=== PATIENT | female | born 1980 | race Caucasian/White ===

== ENCOUNTER 2017-04-18 06:59 | Day surgery (SDC) | payer BC ==
[~2017-04-18 06:59] MED LIST: Lactated Ringers 1,000 ML IV SCH; Lidocaine 1%/Sod Bicarbonate in NS 8.4% 1 ML Syringe IV PRN; Sodium Chloride 0.9% 10 ML Syringe FLUSH PRN
--- NOTE | 2017-04-18 07:25 | PCM.PREANE ---
Preanesthetic Assessment - Anesthesia/Transfusion/Family Hx Anesthesia History: Prior Anesthesia Without Reaction Family History of Anesthesia Reaction: No Transfusion History: No Prior Transfusion(s) - Review of Systems General: No Symptoms Pulmonary: No Symptoms Cardiovascular: No Symptoms Gastrointestinal: No symptoms Neurological: No Symptoms Other: Reports: None - Physical Assessment NPO Status Date: 04/17/17 NPO Status Time: 00:00 Pulse: 68 O2 Sat by Pulse Oximetry: 96 Respiratory Rate: 16 Blood Pressure: 104/58 Temperature: 37.2 C Height: 1.63 m Weight: 56.699 kg ASA Class: 2 Mental Status: Alert & Oriented x3 Airway Class: Mallampati = 1 Dentition: Reports: Normal Dentition Thyro-Mental Finger Breadths: 3 Mouth Opening Finger Breadths: 3 ROM/Head Extension: Full Lungs: Clear to auscultation, Normal respiratory effort Cardiovascular: Regular Rate, Regular Rhythm - Lab Values: Laboratory Last Values MRSA (PCR) Negative 04/15/17 13:59 - Allergies Allergies/Adverse Reactions: Allergies Allergy/AdvReac Type Severity Reaction Status Date / Time chlorhexidine Allergy Mild Itching Verified 04/17/17 15:49 - Acknowledgements Anesthesia Type Planned: Spinal Pt an Appropriate Candidate for the Planned Anesthesia: Yes Alternatives and Risks of Anesthesia Discussed w Pt/Guardian: Yes Pt/Guardian Understands and Agrees with Anesthesia Plan: Yes PreAnesthesia Questionnaire - Past Health History Medical/Surgical History: Denies Medical/Surgical History HEENT History: Reports: Allergic Rhinitis Cardiovascular History: Reports: None Respiratory History: Reports: Bronchitis, Recurrent Gastrointestinal History: Reports: Chronic Diarrhea, GERD, Other (See Below) Other Gastrointestinal History: REMOVAL FOREIGN BODY ESOPHAGUS X 2, ulcer Genitourinary History: Reports: None 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 Other OB/BYN History: pelvic pain Musculoskeletal History: Reports: Back Pain, Chronic, Other (See Below) Other Musculoskeletal History: hip pain Neurological History: Reports: Migraines Psychiatric History: Reports: Anxiety, Depression Endocrine/Metabolic History: Reports: Other (See Below) Other Endocrine/Metabolic History: low serum progesterone Hematologic History: Reports: None Immunologic History: Reports: None Oncologic (Cancer) History: Reports: None - Past Surgical History Head Surgeries/Procedures: Reports: None HEENT Surgical History: Reports: Oral Surgery GI Surgical History: Reports: Appendectomy, Cholecystectomy, Colonoscopy Female Surgical History: Reports: Breast Implant Dermatological Surgical History: Reports: Other (See Below) - SUBSTANCE USE Smoking Status *Q: Current Some Day Smoker Tobacco Use Within Last Twelve Months: Smokeless Tobacco Second Hand Smoke Exposure: No Days Per Week of Alcohol Use: 0 Number of Drinks Per Day: 0 Total Drinks Per Week: 0 Recreational Drug Use History: No - HOME MEDS Home Medications: Home Meds Progesterone [Progesterone In Oil] 1 dose TOP ASDIRECTED 03/20/15 [History] Fluticasone Propionate [Flonase] 1 spray INH DAILY 11/25/15 [History] ALPRAZolam [Alprazolam] 0.25 mg PO DAILY 04/17/17 [History] Fish Oil/[place]-3 Fatty Acids [Fish Oil 1,000 MG] 1 cap PO BID 04/17/17 [History] - CURRENT (IN HOUSE) MEDS Current Meds: Current Medications Lactated Ringer's (Ringers, Lactated) 1,000 mls @ 125 mls/hr IV ASDIRECTED CHEPE Lidocaine/Sodium Bicarbonate (Buffered Lidocaine 1% In Ns 8.4%) 0.25 ml IV ONETIME PRN PRN Reason: Prior to IV Start Sodium Chloride (Saline Flush) 10 ml FLUSH ASDIRECTED PRN PRN Reason: Keep Vein Open
[2017-04-18] MEDS ORDERED: Ondansetron 4 MG/2 ML SDV ONE (07:46)
[2017-04-18] MEDS ORDERED: fentaNYL 250 MCG/5 ML SDV ONE (07:46)
[2017-04-18] MEDS ORDERED: Midazolam 1 MG/ML 2 ML SDV ONE (07:46)
[2017-04-18] MEDS ORDERED: Dexamethasone 4 MG/ML 5 ML MDV ONE (07:46)
[2017-04-18] MEDS ORDERED: diphenhydrAMINE 50 MG/ML SDV ONE (07:46)
[2017-04-18] MEDS ORDERED: Lidocaine 1% 4 ML ONE (07:46)
[2017-04-18] MEDS ORDERED: Propofol 200 MG/20 ML SDV ONE (07:46)
[2017-04-18] MEDS ORDERED: ceFAZolin 1 GM Vial ONE (07:49)
[2017-04-18] MEDS: Bupivacaine 0.25% 30 ML SDV ONE ×2 (07:56→09:39)
[2017-04-18] MEDS ORDERED: Lidocaine 1%/Sod Bicarbonate in NS 8.4% 1 ML Syringe PRN (08:00)
[2017-04-18] MEDS ORDERED: Scopolamine 1.5 MG Transdermal Patch TOP ONE (08:00)
[2017-04-18] MEDS ORDERED: HYDROmorphone 1 MG/ML Syringe ONE (09:09)
[2017-04-18] MEDS ORDERED: Lactated Ringers 1,000 ML ONE (09:40)
--- NOTE | 2017-04-18 10:03 | PCM.POSTAN ---
POST ANESTHESIA ASSESSMENT - MENTAL STATUS Mental Status: somnolent - VITAL SIGNS Pulse Rate: 58 SaO2: 94 Resp Rate: 10 Blood Pressure: 88/48 Temperature: 37.1 C - RESPIRATORY Respiratory Status: respiratory rate WNL, airway patent, O2 saturation stable, supplemental oxygen - CARDIOVASCULAR CV Status: pulse rate WNL, blood pressure stable - GASTROINTESTINAL GI Status: no symptoms - PAIN Pain Score: 0 - POST OP HYDRATION Hydration Status: adequate & stable - OBSERVATIONS Free Text/Narrative:: no anesthesia complications noted
[2017-04-18] MEDS: fentaNYL 100 MCG/2 ML SDV IVPUSH PRN ×3 (10:11→10:25)
[2017-04-18] MEDS ORDERED: HYDROmorphone 0.5 MG/0.5 ML Syringe IVPUSH ONE (10:45)
[2017-04-18] MEDS ORDERED: Acetaminophen/HYDROcodone 325-5 MG Tab PO ONE (11:15)
--- NOTE | 2017-04-18 11:32 | PCM.OPNOTE ---
- General Post-Op/Procedure Note Date of Surgery/Procedure: 04/18/17 Operative Procedure(s): percutaneous pinning of left femoral neck stress fracture Pre Op Diagnosis: left femoral neck stress fracture Post-Op Diagnosis: Same Anesthesia Technique: General LMA, Local Primary Surgeon: Oliver Hampton Anesthesia Provider: Juan Monzon Police Specialist: Saba Mejia EBL in mLs: 10 Complications: None Condition: Good Free Text/Narrative:: Intake & Output 04/17/17 04/18/17 04/18/17 22:59 06:59 14:59 Intake Total 250 Balance 250
[2017-04-18 12:12] VITALS: BP 107/66
--- NOTE | 2017-04-18 19:16 | OR ---
DATE OF OPERATION: 04/18/2017 SURGEON: Oliver Hampton MD OPERATION PERFORMED: Percutaneous pinning of left femoral neck stress fracture. PREOPERATIVE DIAGNOSIS: Left femoral neck stress fracture. POSTOPERATIVE DIAGNOSIS: Left femoral neck stress fracture. ANESTHESIA: General LMA with local. ANESTHESIA PROVIDER: Juan Monzon CRNA. TABLET TESTER: Saba Mejia PA-C. ESTIMATED BLOOD LOSS: 10 mL. CONDITION: Stable. DESCRIPTION OF PROCEDURE: The patient was identified in the preop holding area. Proper site was marked and identified by the surgeon. The patient was taken back to the operating theater where after adequate anesthesia, the patient was placed on the traction table, just gross traction was applied to both extremities, but no fine traction was applied. The left hip was then sterilely prepped and draped in the usual sterile fashion. OR time-out was performed. The patient received 2 g of IV Ancef. At this time, under C-arm fluoroscopy, the starting point for the inferior calcar screw was done in both the AP and lateral views making sure not to be below the level of the lesser trochanter. The guide pin was then placed up near the junction of the femoral acetabular joint. Next, the superior pins both anterior and posterior were placed on both AP and lateral views making sure they were within the neck. It was found to be in adequate position on all 3 pins. At this time, an over drill was used, and then three 85-mm 6.5-mm [place] titanium screws were placed they were found to have adequate fixation and the tip apex distance between all 3 was found to be sufficient. At this time, adequate saline was irrigated through all wounds. 0.25% Marcaine was injected around all stab incisions and theodora were used for skin along with a Mepilex dressing. The patient tolerated the procedure well and sent to PACU in stable condition. She can be weight bear as tolerated. MMTERRENCE /[id number]
--- NOTE | 2017-04-19 09:05 | CR ---
Left hip: Multiple fluoroscopic spot views of the left hip were obtained utilizing C-arm device. Comparison: Previous MRI left hip study of 12/16/16 There is placement of 3 cannulated screws across the femoral neck. Tips of the cannulated screws lie within the femoral head. No underlying bony abnormality is otherwise seen. Fluoroscopy time given as 106 seconds. Impression: 1. Operative study as described above. Diagnostic code #2
== END 2017-04-18 13:01 | disposition home or self-care (01) ==
LOC: JD.SDS 06:59
PROVIDERS: ATTEND Orthopaedic Surgery
PROC: 0QH934Z Insertion of Internal Fixation Device into Left Femoral Shaft, Percutaneous Approach (ICD-10-PCS; principal; 2017-04-18)
DX: M84.352A Stress fracture, left femur, initial encounter for fracture (principal); J30.9 Allergic rhinitis, unspecified; F41.9 Anxiety disorder, unspecified; F32.9 Major depressive disorder, single episode, unspecified; K21.9 Gastro-esophageal reflux disease without esophagitis; M54.17 Radiculopathy, lumbosacral region; J40 Bronchitis, not specified as acute or chronic; Z87.891 Personal history of nicotine dependence; Z90.49 Acquired absence of other specified parts of digestive tract; Z98.890 Other specified postprocedural states; Z79.899 Other long term (current) drug therapy
CPT/HCPCS: 27235; 76000; 81025; 87641; A9270; J0690; J1100; J1170; J1200; J2250; J2405; J3010; J7120; 01230; C1713; J2704; J3490

== ENCOUNTER 2018-12-26 09:10 | Day surgery (SDC) | payer BC ==
[~2018-12-26 09:10] MED LIST changes: +Lidocaine 1% 4 ML ONE; +Lidocaine 1%/Sod Bicarbonate in NS 8.4% 1 ML Syringe IDERM PRN; -Lidocaine 1%/Sod Bicarbonate in NS 8.4% 1 ML Syringe IV PRN; +Midazolam 1 MG/ML 2 ML SDV ONE; +Propofol 200 MG/20 ML SDV ONE; +fentaNYL 100 MCG/2 ML SDV ONE
--- NOTE | 2018-12-26 10:03 | PCM.PREANE ---
Preanesthetic Assessment - Anesthesia/Transfusion/Family Hx Anesthesia History: Prior Anesthesia Without Reaction Transfusion History: No Prior Transfusion(s) - Review of Systems General: No Symptoms, Other Pulmonary: No Symptoms Cardiovascular: No Symptoms Gastrointestinal: Other (GERD, patients states controlled ) Other: Reports: Thyroid Problems, Depression, Anxiety - Physical Assessment NPO Status Date: 12/26/18 NPO Status Time: 04:00 Pulse: 62 O2 Sat by Pulse Oximetry: 99 Respiratory Rate: 16 Blood Pressure: 114/73 Vital Signs: Last Vital Signs Temp 36.7 C 12/26/18 09:25 Pulse 62 12/26/18 09:25 Resp 16 12/26/18 09:25 BP 114/73 12/26/18 09:25 Pulse Ox 99 12/26/18 09:25 Weight: 54 kg ASA Class: 2 Mental Status: Alert & Oriented x3 Airway Class: Mallampati = 2 Dentition: Reports: Normal Dentition Thyro-Mental Finger Breadths: 3 Mouth Opening Finger Breadths: 3 ROM/Head Extension: Full Lungs: Clear to Auscultation, Normal Respiratory Effort Cardiovascular: Regular Rate, Regular Rhythm - Lab Values: Laboratory Last Values Urine HCG, Qual Negative (NEGATIVE) 12/26/18 09:22 - Allergies Allergies/Adverse Reactions: Allergies Allergy/AdvReac Type Severity Reaction Status Date / Time chlorhexidine Allergy Mild Itching Verified 12/26/18 10:00 - Blood Blood Available: No Product(s) Available: None - Anesthesia Plan Pre-Op Medication Ordered: None - Acknowledgements Anesthesia Type Planned: MAC Pt an Appropriate Candidate for the Planned Anesthesia: Yes Alternatives and Risks of Anesthesia Discussed w Pt/Guardian: Yes Pt/Guardian Understands and Agrees with Anesthesia Plan: Yes PreAnesthesia Questionnaire - Past Health History Medical/Surgical History: Denies Medical/Surgical History HEENT History: Reports: Allergic Rhinitis, Other (See Below) Other HEENT History: rhytides Cardiovascular History: Reports: None Respiratory History: Reports: Bronchitis, Recurrent Gastrointestinal History: Reports: Chronic Diarrhea, GERD, Other (See Below) Other Gastrointestinal History: REMOVAL FOREIGN BODY ESOPHAGUS X 2, gastric ulcer, RUQ pain Genitourinary History: Reports: None 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 Other OB/BYN History: pelvic pain, menorrhagia, dysmenorrhea, low progesterone Musculoskeletal History: Reports: Back Pain, Chronic, Other (See Below) Other Musculoskeletal History: hip pain Neurological History: Reports: Migraines Psychiatric History: Reports: Anxiety, Depression Endocrine/Metabolic History: Reports: Other (See Below) Other Endocrine/Metabolic History: low serum progesterone, hashimotos Hematologic History: Reports: None Immunologic History: Reports: None Oncologic (Cancer) History: Reports: None Dermatologic History: Reports: Other (See Below) Other Dermatologic History: rash, rhytides - Past Surgical History Head Surgeries/Procedures: Reports: None HEENT Surgical History: Reports: Oral Surgery Cardiovascular Surgical History: Reports: None Respiratory Surgical History: Reports: None GI Surgical History: Reports: Appendectomy, Cholecystectomy, Colonoscopy Female Surgical History: Reports: Breast Implant, Section Male Surgical History: Reports: None Endocrine Surgical History: Reports: None Neurological Surgical History: Reports: None Oncologic Surgical History: Reports: None Dermatological Surgical History: Reports: Other (See Below) - SUBSTANCE USE Recreational Drug Use History: No - HOME MEDS Home Medications: Home Meds ALPRAZolam [Alprazolam] 0.25 mg PO TID PRN 04/17/17 [History] Levonorgestrel [Mirena] 1 ea VAG ASDIRECTED 12/25/18 [History] Thyroid,Pork [[place] Thyroid] 30 mg PO DAILY 12/25/18 [History] - CURRENT (IN HOUSE) MEDS Current Meds: Current Medications Lactated Ringer's (Ringers, Lactated) 1,000 mls @ 125 mls/hr IV ASDIRECTED CHEPE Stop: 12/26/18 23:00 Lidocaine/Sodium Bicarbonate (Buffered Lidocaine 1% In Ns 8.4%) 0.25 ml IDERM ONETIME PRN PRN Reason: Prior to IV Start Stop: 12/26/18 18:00 Sodium Chloride (Saline Flush) 10 ml FLUSH ASDIRECTED PRN PRN Reason: Keep Vein Open Stop: 12/26/18 18:00 Discontinued Medications Fentanyl (Sublimaze) Confirm Administered Dose 100 mcg .ROUTE .STK-MED ONE Stop: 12/26/18 08:48 Lidocaine HCl (Xylocaine-Mpf 1%) Confirm Administered Dose 4 mls @ as directed .ROUTE .STK-MED ONE Stop: 12/26/18 08:47 Midazolam HCl (Versed 1 Mg/Ml) Confirm Administered Dose 2 mg .ROUTE .STK-MED ONE Stop: 12/26/18 08:48 Propofol (Diprivan 20 Ml) Confirm Administered Dose 200 mg .ROUTE .STK-MED ONE Stop: 12/26/18 08:47
[2018-12-26] MEDS ORDERED: Propofol 200 MG/20 ML SDV ONE (10:34)
--- NOTE | 2018-12-26 11:06 | PCM48HPAN ---
Post Anesthesia Note - EVALUATION WITHIN 48HRS OF ANESTHETIC Vital Signs in Normal Range: Yes Patient Participated in Evaluation: Yes Respiratory Function Stable: Yes Airway Patent: Yes Cardiovascular Function Stable: Yes Hydration Status Stable: Yes Pain Control Satisfactory: Yes Nausea and Vomiting Control Satisfactory: Yes Mental Status Recovered: Yes Pulse Rate: 70 SaO2: 98 Resp Rate: 16 Temperature: 97 F Blood Pressure: 114/73
--- NOTE | 2018-12-26 11:08 | PCM.OPNOTE ---
- General Post-Op/Procedure Note Date of Surgery/Procedure: 12/26/18 Operative Procedure(s): colonoscopy, screening Findings: normal colonoscopy Pre Op Diagnosis: h/o colonic polyp, requiring repeat screening Post-Op Diagnosis: Same Anesthesia Technique: MAC Primary Surgeon: Rashard De La Paz Anesthesia Provider: Lexy Woods Complications: None Condition: Good Free Text/Narrative:: Indications for surgery: The patient is 38 yo female, h/o small sessile serrated adenoma removed from her colon 3 years ago, performed for diagnostic purposes, here for repeat screening colonoscopy. The patient was consented for colonoscopy with possible biopsy. Indications, risks, and benefits were discussed with the patient in detail. Description of procedure: After surgical consent was verified, the patient was brought to the main OR. A surgical time-out was performed to verify proper patient and proper procedure. Anesthesia performed monitored anesthesia care. A digital rectal exam was performed, which was normal. The colonoscope was inserted into the anus and advanced through the colon to the cecum. Location of the cecum was confirmed by presence of the appendiceal orifice and ileocecal valve. The scope was then withdrawn, with inspection of the colonic mucosa. Retroflexion was performed in the rectum. The remainder of the colon and rectum was normal. Withdrawal time was 9 minutes. There were no colonic or rectal abnormalities. There was no blood loss. The patient tolerated the procedure well, was brought out of anesthesia, and transported to the PACU in stable condition. Rashard De La Paz M.D., F.A.C.S. General Surgery Pager: [phone]
[2018-12-26 11:40] VITALS: BP 108/75
== END 2018-12-26 11:35 | disposition home or self-care (01) ==
LOC: JD.SDS 09:10
PROVIDERS: ATTEND Student in an Organized Health Care Education/Training Program
DX: Z12.11 Encounter for screening for malignant neoplasm of colon (principal); F41.9 Anxiety disorder, unspecified; F32.9 Major depressive disorder, single episode, unspecified; K21.9 Gastro-esophageal reflux disease without esophagitis; E06.3 Autoimmune thyroiditis; E03.9 Hypothyroidism, unspecified; Z86.010 Personal history of colon polyps; Z87.891 Personal history of nicotine dependence; Z79.899 Other long term (current) drug therapy; Z88.8 Allergy status to other drugs, medicaments and biological substances
CPT/HCPCS: 45378; 81025; J2001; J2250; J2704; J3010; J7120